=== PATIENT | female | born 1990 | race Caucasian/White ===

== ENCOUNTER 2017-04-28 13:16 | Outpatient (CLI) | payer BC ==
[~2017-04-28 13:16] MED LIST: BCP; ISOT10CA PO
[2017-04-28] MEDS ORDERED: IOHEXOL 50 ML IV ONE (13:55)
== END 2017-04-28 19:39 | disposition home or self-care (01) ==
LOC: SRD 13:16
PROVIDERS: ATTEND Specialist
DX: N92.6 Irregular menstruation, unspecified (principal); N97.9 Female infertility, unspecified
CPT/HCPCS: 74740; C1751; Q9967

== ENCOUNTER 2017-07-22 06:05 | Day surgery (SDC) | payer BC ==
[~2017-07-22] VITALS: Ht 160 cm; Wt 78.0 kg
[2017-07-22] MEDS ORDERED: CEFAZOLIN SOD 1 GM/ ISO 50 ML PREMIX IV ONE (07:15)
[2017-07-22] MEDS ORDERED: NEOSTIGMINE METHYLSULFATE 1 MG/ML, 10 ML VIAL IVP ONE (07:45)
[2017-07-22] MEDS ORDERED: KETOROLAC TROMETHAMINE 30 MG VIAL IVP ONE (07:45)
[2017-07-22] MEDS ORDERED: SEVOFLURANE 15 MIN GAS INH ONE (07:45)
[2017-07-22] MEDS ORDERED: GLYCOPYRROLATE 0.2 MG/ML VIAL IJ ONE (07:45)
[2017-07-22] MEDS ORDERED: MIDAZOLAM HCL 5 MG/5 ML VIAL IVP ONE (07:45)
[2017-07-22] MEDS ORDERED: fentaNYL CITRATE 250 MCG/5 ML AMP IV ONE (07:45)
[2017-07-22] MEDS ORDERED: ROCURONIUM BROMIDE 10 MG/ML (ZEMURON) IV ONE (07:45)
[2017-07-22] MEDS ORDERED: BUPIVACAINE /EPINEPHRINE/PF 0.5% 30 ML VIAL INJ ONE (07:45)
[2017-07-22] MEDS ORDERED: PROPOFOL 200MG/ 20ML VIAL (DIPRIVAN) IV ONE (07:45)
[2017-07-22] MEDS ORDERED: METOCLOPRAMIDE HCL 10 MG/2 ML VIAL IVP PRN (08:45)
[2017-07-22] MEDS ORDERED: MORPHINE 4 MG/ML INJ. SYRINGE IVP PRN ×3 (08:45)
[2017-07-22] MEDS: LR 1,000 ML IV SCH ×2 (09:15→11:30)
[2017-07-22] MEDS ORDERED: OXYCODONE/ACETAMINOPHEN 5-325 TABLET PO PRN (09:15)
[2017-07-22] MEDS ORDERED: ONDANSETRON HCL 4 MG/2 ML VIAL IVP PRN (09:15)
[2017-07-22] MEDS ORDERED: HYDROcodone/ACETAMIN 5-325 MG TAB (NORCO/ VICODIN) PO PRN (09:15)
[2017-07-22] MEDS ORDERED: MORPHINE 4 MG/ML INJ. SYRINGE ONE (09:28)
[2017-07-22] MEDS ORDERED: OXYCODONE/ACETAMINOPHEN 5-325 TABLET ONE (10:25)
[2017-07-22 10:35] VITALS: BP_SYST 99
== END 2017-07-22 11:50 | disposition home or self-care (01) ==
LOC: SMU 06:05 → SDS 06:05
PROVIDERS: ATTEND Specialist
DX: E28.2 Polycystic ovarian syndrome (principal); N73.6 Female pelvic peritoneal adhesions (postinfective); I10 Essential (primary) hypertension; E66.3 Overweight; R00.0 Tachycardia, unspecified; I49.9 Cardiac arrhythmia, unspecified
CPT/HCPCS: 58662; 88108; C1727; J0690; J2270; J7120; J1885; J2250; J2704; J2710; J3010; J3490